=== PATIENT | female | born 1950 | race Two or more races ===

== ENCOUNTER → 2020-04-25 | Outpatient (CLI) | payer OTHER, MEDICAID ==
--- NOTE | 2020-04-25 15:37 | KCIC ---
XR EXAM OF ANKLE_LEFT 3V History: Reason: Lateral ankle pain 4 months, surgery 12/2019, swelling, hx. DVT / Spl. Instructions: / History: Comparison: None. Technique: 3 views of left ankle Findings: Decreased osseous mineralization. Postsurgical features from plate and screw fixation of the lateral distal fibula. Screw fixation of the medial malleolus. No evidence of screw loosening. The talar dome and ankle mortise are intact. No residual fracture lucencies are identified. Alignment is near-anato christy. Mild degenerative changes of the mid foot. Small plantar calcaneal enthesophyte. Impression: 1. Left ankle ORIF without evidence for complication. Electronically signed by: Vinicio Pizano MD (04/25/2020 3:35 PM) [facility]
== END ==
LOC: KCIC 11:38
PROVIDERS: ATTEND Family Medicine
DX: I82.402 Acute embolism and thrombosis of unspecified deep veins of left lower extremity (principal); M25.572 Pain in left ankle and joints of left foot
CPT/HCPCS: 73610

== ENCOUNTER → 2020-07-04 | Outpatient (CLI) | payer OTHER, MEDICAID ==
--- NOTE | 2020-07-04 13:40 | RAD ---
EXAMINATION: US DPLX VENOUS EXTREMITY LOWER LT (LOWER EXTREMITY VENOUS ULTRASOUND) CLINICAL HISTORY: DVT; LT ankle FX 12/2019 with repair; Prev DVT seen at [facility] TECHNIQUE: Sonographic grayscale images obtained of the left lower extremity deep venous system with color flow Doppler, compression, and augmentation techniques as indicated. Images obtained and store d in a permanent archive. COMPARISON: None FINDINGS: Eccentric nonocclusive thrombus in the common femoral, femoral, and popliteal veins, compatible with chronic DVT. Visualized calf veins appear patent on limited evaluation. IMPRESSION: Findings compatible with chronic nonocclusive thrombus in the left common femoral, femoral, and popli teal veins. Supervisor Stave Cutting called findings to the referring physician's office on 07/04/2020 at 13:15 and spoke to one of the office nurses, Elvira, who relayed the findings to Dr. Rucker. Electronically signed by: Rogelio Joel DO (07/04/2020 1:38 PM) [facility]
== END ==
LOC: US 12:07
PROVIDERS: ATTEND Family Medicine
DX: S82.892A Other fracture of left lower leg, initial encounter for closed fracture (principal); I82.402 Acute embolism and thrombosis of unspecified deep veins of left lower extremity; X58.XXXA Exposure to other specified factors, initial encounter; Y93.89 Activity, other specified; Y92.89 Other specified places as the place of occurrence of the external cause; Y99.8 Other external cause status
CPT/HCPCS: 93971

== ENCOUNTER → 2020-12-03 | Outpatient (CLI) | payer MEDICAID, OTHER ==
--- NOTE | 2020-12-03 18:22 | KCIC ---
Bilateral digital screening 2-D and 3-D mammogram: Reason for examination: Routine screening. There are no prior studies available for comparison. Bilateral mammograms in CC and oblique projections were obtained with 2-D imaging and 3-D tomosynthes is imaging and reviewed on the workstation. Interpretation was made with the benefit of CAD. Findings: Breast density:: Category C. The breasts are heterogeneously dense, which may obscure small masses. There are no suspicious masses, malignant appearing calcifications or architectural distortion. Impression: No evidence of malignancy. ASSESSMENT: BI-RADS 1. Recommendations: Routine screening mammograms. This patient's information has been entered into a reminder system for the patient to be notified wit h the results of her examination and a target date for the next mammogram. Your patient's mammogram demonstrates that she has dense breast tissue (breast density category C or D), which could hide abnormalities, and if she has other risk factors for breast cancer that have bee n identified, she might benefit from supplemental screening tests that may be suggested by you as her ordering physician. Dense breast tissue, in and of itself, is a relatively common condition. Therefo re, this information is not provided to cause undue concern, but rather to raise your awareness and t o promote discussion with your patient regarding the presence of other risk factors, in addition to d ense breast tissue. Electronically signed by: Yecenia Mejia MD (12/03/2020 6:20 PM) [id number]
== END ==
LOC: KCIC MAMMO 09:37
PROVIDERS: ATTEND Family Medicine
DX: Z12.31 Encounter for screening mammogram for malignant neoplasm of breast (principal)
CPT/HCPCS: 77063; 77067